=== PATIENT | female | born 2000 | race Caucasian/White ===

== ENCOUNTER 2018-07-10 20:58 | Emergency (ER) | payer MEDICAID ==
[2018-07-11 01:43] LABS: ABSOLUTE EOSINOPHILS # (AUTO) 0.1 10^3/uL (0.0-0.6); ABSOLUTE LYMPHOCYTES (AUTO) 2.2 10^3/uL (0.5-4.7); ABSOLUTE MONOCYTES (AUTO) 0.6 10^3/uL (0.1-1.4); ABSOLUTE NEUT (AUTO) 7.9 10^3/uL (1.7-8.2); BASOPHILS % (AUTO) 0.1 % (0-2); HEMATOCRIT 37.1 % (36.0-47.0); HEMOGLOBIN 12.8 g/dL (12.0-15.5); LYMPHOCYTES % (AUTO) 20.3 % (13-45); MEAN CORPUSCULAR HEMOGLOBIN 31.4 pg (27.0-33.4); MEAN CORPUSCULAR HGB CONC 34.6 g/dL (32.0-36.0); MEAN CORPUSCULAR VOLUME 91 fl (80-97); MONOCYTES % (AUTO) 5.2 % (3-13); PLATELET COUNT 222 10^3/uL (150-450); RED BLOOD COUNT 4.09 10^6/uL (3.72-5.28); SEGMENTED NEUTROPHILS % (AUTO) 73.4 % (42-78); TOTAL CELLS COUNTED % (AUTO) 100 %; WHITE BLOOD COUNT 10.7 10^3/uL (4.0-10.5)
[2018-07-11 01:53] LABS: ANION GAP 7 (5-19); BLOOD UREA NITROGEN 8 mg/dL (7-20); CALCIUM 9.3 mg/dL (8.4-10.2); CARBON DIOXIDE 26 mmol/L (22-30); CHLORIDE 106 mmol/L (98-107); GLUCOSE 76 mg/dL (75-110); POTASSIUM 3.7 mmol/L (3.6-5.0); SODIUM 139.4 mmol/L (137-145)
[2018-07-11 02:03] LABS: APPEARANCE,URINE SLIGHTLY-CLOUDY; BILIRUBIN,URINE NEGATIVE (NEGATIVE); COLOR,URINE AMBER; GLUCOSE, URINE NEGATIVE (NEGATIVE); KETONES,URINE 20 mg/dL (NEGATIVE); LEUKOCYTE ESTERASE,URINE MODERATE (NEGATIVE); NITRITE,URINE POSITIVE (NEGATIVE); PROTEIN,URINE NEGATIVE (NEGATIVE); URINE SPECIFIC GRAVITY 1.017
[2018-07-11] MEDS ORDERED: LIDOCAINE 1% INJ-PF (10 MG/ML) 30 ML SDV INFIL ONE (02:31)
[2018-07-11] MEDS ORDERED: CEFTRIAXONE INJ 1000 MG VIAL IM ONE (02:31)
--- NOTE | 2018-07-11 02:33 | ER Document Report ---
ED General - General Chief Complaint: Flank Pain Stated Complaint: URINARY COMPLAINTS Time Seen by Provider: 07/11/18 00:45 Notes: Patient is a 18-year-old female without chronic medical problems who presents with right flank pain and dysuria. States the symptoms been ongoing for the past 48 hours. She was seen as an outpatient basis in [place] yesterday, diagnosed as having a right-sided kidney infection, given a dose of IV antibiotics and discharged home. States that she was unable to fill her antibiotic prescription today secondary to insurance issues. She reports that she continues to have a stabbing, aching, constant pain to the right flank. Nothing improves or worsens that pain. No history of similar symptoms in the past. She has not had a recorded fever at home, does note some mild nausea and fatigue. Has not yet followed up with her primary doctor regarding today's concerns. Continues to feel active movement. No vaginal bleeding or discharge. TRAVEL OUTSIDE OF THE [place] IN LAST 30 DAYS: No - Related Data Allergies/Adverse Reactions: No Known Allergies Allergy (Unverified 07/10/18 21:02) Past Medical History - General Information source: Patient - Social History Smoking Status: Never Smoker Frequency of alcohol use: None Drug Abuse: None Lives with: Alone Family History: Reviewed & Not Pertinent Review of Systems - Review of Systems Notes: Constitutional: Negative for fever. HENT: Negative for sore throat. Eyes: Negative for visual changes. Cardiovascular: Negative for chest pain. Respiratory: Negative for shortness of breath. Gastrointestinal: Positive for right flank pain and nausea Genitourinary: Positive for dysuria. Musculoskeletal: Negative for back pain. Skin: Negative for rash. Neurological: Negative for headaches, weakness or numbness. 10 point ROS negative except as marked above and in HPI. Physical Exam - Vital signs Vitals: Temp Pulse Resp BP Pulse Ox 98.4 F 70 18 112/54 L 97 07/10/18 21:36 07/10/18 21:36 07/10/18 21:36 07/10/18 21:36 07/10/18 21:36 Interpretation: Normal Notes: PHYSICAL EXAMINATION: GENERAL: Well-appearing, well-nourished and in no acute distress. HEAD: Atraumatic, normocephalic. EYES: Pupils equal round and reactive to light, extraocular movements intact, sclera anicteric, conjunctiva are normal. ENT: nares patent, oropharynx clear without exudates. Moist mucous membranes. NECK: Normal range of motion, supple without lymphadenopathy LUNGS: Breath sounds clear to auscultation bilaterally and equal. No wheezes rales or rhonchi. HEART: Regular rate and rhythm without murmurs ABDOMEN: Soft, gravid uterus, nontender, normoactive bowel sounds. No guarding, no rebound. No masses appreciated. Mild right CVA tenderness. EXTREMITIES: Normal range of motion, no pitting or edema. No cyanosis. NEUROLOGICAL: No focal neurological deficits. Moves all extremities spontaneously and on command. PSYCH: Normal mood, normal affect. SKIN: Warm, Dry, normal turgor, no rashes or lesions noted. Course - Re-evaluation Re-evalutation: 07/11/18 02:31 Presentation is most consistent with acute pyelonephritis. Laboratories do demonstrate a large amount of white blood cells in the urine as well as bacteria. Patient apparently had an ultrasound of her kidneys yesterday that did show inflammation of her right kidney. CVA tenderness is present on exam. The remainder laboratories are relatively unremarkable without evidence of renal dysfunction. I do not suspect an acute appendicitis, biliary pathology, pancreatitis, intra-abdominal abscess, or tubo-ovarian abscess based on history and examination. Patient is 19 weeks , bedside ultrasound without any abnormalities, active movement and normal heart rate at 143. I did discuss this case with the [employer]ER on-call Dr. Steiner given that the patient is . He is agreeable to outpatient management. Patient has been given an additional dose of ceftriaxone IM here in the emergency department and will be discharged home on 7 day course of cephalexin. A urine culture has been sent. At this time will discharge with return precautions and follow-up recommendations. Verbal discharge instructions given a the bedside and opportunity for questions given. Medication warnings reviewed. Patient is in agreement with this plan and has verbalized understanding of return precautions and the need for primary care follow-up in the next 24-72 hours. - Vital Signs Vital signs: Temp Pulse Resp BP Pulse Ox 98.4 F 72 18 105/51 L 98 07/11/18 03:28 07/11/18 03:28 07/11/18 03:28 07/11/18 03:28 07/11/18 03:28 - Laboratory Result Diagrams: 07/11/18 01:30 07/11/18 01:30 Laboratory results interpreted by me: 07/11/18 07/11/18 07/11/18 01:30 01:30 01:30 WBC 10.7 H Creatinine 0.51 L Beta HCG, Quant Urine Ketones 20 H Urine Blood SMALL H Urine Nitrite POSITIVE H Urine Urobilinogen 4.0 H Ur Leukocyte Esterase MODERATE H Urine HCG, Qual POSITIVE H 07/11/18 01:30 WBC Creatinine Beta HCG, Quant 49212.00 H Urine Ketones Urine Blood Urine Nitrite Urine Urobilinogen Ur Leukocyte Esterase Urine HCG, Qual Discharge - Discharge Clinical Impression: Right flank pain Pyelonephritis affecting Qualifiers: Trimester: second trimester Qualified Code(s): O23.02 - Infections of kidney in , second trimester Condition: Stable Disposition: HOME, SELF-CARE Additional Instructions: You have been diagnosed with a condition called pyelonephritis which is an infection involving your kidneys and bladder. You have been given a dose of antibiotics here in the emergency department to help begin to treat this infection. Your also being sent home on antibiotics. Please start taking these later on today when you fill the prescription. Complete the course even if you feel better. Please return if you have persistent vomiting, pass out, have worsening pain, become unable to tolerate fluids, or have any other symptoms that are concerning to you. Please follow-up with your primary care physician in the next 24-48 hours. Prescriptions: Cephalexin Monohydrate [Keflex 500 mg Capsule] 500 mg PO Q6H 7 Days capsule
[2018-07-11 03:32] VITALS: BP 105/51
== END 2018-07-11 03:32 | disposition home or self-care (01) ==
LOC: ER 20:58
DX: O23.02 Infections of kidney in pregnancy, second trimester (principal); R10.9 Unspecified abdominal pain; R30.0 Dysuria; Z3A.19 19 weeks gestation of pregnancy
CPT/HCPCS: 99284; 96372; 36415; 87086; 84702; 85025; 81025; 80048; 81001; J3490; J0696

== ENCOUNTER 2018-07-11 17:37 | Inpatient (IN) | payer MEDICAID ==
[2018-07-11] MEDS ORDERED: NORMAL SALINE 1000 ML 1,000 ML IV ONE ×2 (18:54→21:24)
[2018-07-11] MEDS ORDERED: FENTANYL CITRATE INJ/PF 100 MCG/2 ML AMPUL IV ONE (18:57)
--- NOTE | 2018-07-11 19:00 | ER Document Report ---
ED Medical Screen (RME) - General Chief Complaint: Flank Pain Stated Complaint: FLANK PAIN Time Seen by Provider: 07/11/18 18:54 Notes: Patient is 19 weeks and has been diagnosed with a kidney infection. She has been having symptoms for a total of a couple of days. She was originally seen at [facility] 2 days ago and diagnosed with the infection. She says that she they did an ultrasound at that time and it did not show any evidence of kidney stones. Patient was unable to fill her prescription that was given. She came here last night and was given a dose of Rocephin IV and prescription for Keflex. She says that she does not have anything but Tylenol to take for pain. She is nauseated but not vomiting. Not running any fever. TRAVEL OUTSIDE OF THE [place] IN LAST 30 DAYS: No - Related Data Allergies/Adverse Reactions: No Known Allergies Allergy (Unverified 07/10/18 21:02) Past Medical History - Social History Frequency of alcohol use: None Drug Abuse: None Renal/ Medical History: Denies: Hx Peritoneal Dialysis Past Surgical History: Reports: Hx Appendectomy Physical Exam - Vital signs Vitals: Temp Pulse Resp BP Pulse Ox 99 F 95 18 123/62 96 07/11/18 17:45 07/11/18 17:45 07/11/18 17:45 07/11/18 17:45 07/11/18 17:45 Course - Vital Signs Vital signs: Temp Pulse Resp BP Pulse Ox 99 F 95 18 123/62 96 07/11/18 17:45 07/11/18 17:45 07/11/18 17:45 07/11/18 17:45 07/11/18 17:45
[2018-07-11 19:30] LABS: ABSOLUTE EOSINOPHILS # (AUTO) 0.1 10^3/uL (0.0-0.6); ABSOLUTE LYMPHOCYTES (AUTO) 1.4 10^3/uL (0.5-4.7); ABSOLUTE MONOCYTES (AUTO) 0.4 10^3/uL (0.1-1.4); ABSOLUTE NEUT (AUTO) 7.1 10^3/uL (1.7-8.2); BASOPHILS % (AUTO) 0.3 % (0-2); EOSINOPHILS % (AUTO) 0.6 % (0-6); HEMATOCRIT 36.3 % (36.0-47.0); HEMOGLOBIN 12.5 g/dL (12.0-15.5); LYMPHOCYTES % (AUTO) 15.2 % (13-45); MEAN CORPUSCULAR HEMOGLOBIN 31.2 pg (27.0-33.4); MEAN CORPUSCULAR HGB CONC 34.5 g/dL (32.0-36.0); MEAN CORPUSCULAR VOLUME 91 fl (80-97); MONOCYTES % (AUTO) 4.8 % (3-13); PLATELET COUNT 229 10^3/uL (150-450); RED BLOOD COUNT 4.01 10^6/uL (3.72-5.28); RED CELL DISTRIBUTION WIDTH 12.6 % (11.5-14.0); SEGMENTED NEUTROPHILS % (AUTO) 79.1 % (42-78); TOTAL CELLS COUNTED % (AUTO) 100 %; WHITE BLOOD COUNT 8.9 10^3/uL (4.0-10.5)
--- NOTE | 2018-07-11 19:35 | ER Document Report ---
ED General - General Chief Complaint: Flank Pain Stated Complaint: FLANK PAIN Time Seen by Provider: 07/11/18 18:54 Notes: Patient is a 18-year-old female that presents to the emergency department for chief complaint of right flank pain. Patient states that she initially went to an [facility] hospital 2 days ago, was seen in the emergency department diagnosed with a UTI, she is currently 19 weeks gravid, , and was started on antibiotics, she came to the emergency department yesterday she is still having some right flank pain associated with this, but it was controllable, she was discharged home, to take Tylenol and Keflex, however the pain persisted through today so she came back to the emergency department for her third visit, describing severe right flank pain, she describes as a 10 out of 10, constant aching sensation, and she cannot get comfortable. She denies having any blood in the urine, but does admit to having dysuria associated with this and urinary frequency. Denies prior history of UTIs, or kidney stones. Denies noting any fevers, but has felt chilled associated with this, and has had nausea but no vomiting. Past Medical History: Denies chronic medical conditions Past Surgical History: Denies surgical history Social History: Denies current tobacco, alcohol or drug use. Family History: Reviewed and noncontributory for presenting illness Allergies: Reviewed, see documented allergy list. REVIEW OF SYSTEMS: Other than noted above, the 12 point review of systems was reviewed with the patient and were negative, all pertinent findings are included in the HPI. PHYSICAL EXAMINATION: Vital signs reviewed, nursing noted reviewed. GENERAL: Patient appears uncomfortable on exam, but nontoxic appearing HEAD: Atraumatic, normocephalic. EYES: Eyes appear normal, extraocular movements intact, sclera anicteric, conjunctiva are normal. ENT: nares patent, oropharynx clear without exudates. Moist mucous membranes. NECK: Normal range of motion, supple without lymphadenopathy LUNGS: Breath sounds clear to auscultation bilaterally and equal. No wheezes rales or rhonchi. HEART: Regular rate and rhythm without murmurs ABDOMEN: Soft, right CVA tenderness to palpation, no anterior abdominal tenderness noted, normoactive bowel sounds. No rebound, guarding, or rigidity. No masses appreciated. EXTREMITIES: Nontender, good range of motion, no pitting or edema. NEUROLOGICAL: No focal neurological deficits. Moves all extremities spontaneously Motor and sensory grossly intact on exam. PSYCH: Normal mood, normal affect. SKIN: Warm, Dry, normal turgor, no rashes or lesions noted on exposed skin TRAVEL OUTSIDE OF THE [place] IN LAST 30 DAYS: No - Related Data Allergies/Adverse Reactions: No Known Allergies Allergy (Unverified 07/10/18 21:02) Past Medical History - Social History Smoking Status: Never Smoker Frequency of alcohol use: None Drug Abuse: None Family History: Reviewed & Not Pertinent Patient has suicidal ideation: No Patient has homicidal ideation: No Renal/ Medical History: Denies: Hx Peritoneal Dialysis Past Surgical History: Reports: Hx Appendectomy Physical Exam - Vital signs Vitals: Temp Pulse Resp BP Pulse Ox 99 F 95 18 123/62 96 07/11/18 17:45 07/11/18 17:45 07/11/18 17:45 07/11/18 17:45 07/11/18 17:45 Course - Re-evaluation Re-evalutation: Patient seen and examined vital signs reviewed. Laboratory data and imaging were ordered as appropriate for the patient's presenting symptoms and complaint, with consideration of any critical or life threatening conditions that may be associated with their obtained history and exam as noted above. Patient was treated with IV Rocephin, initially given IV fentanyl, via triage provider Results were reviewed when available and demonstrated resolving leukocytosis, urinalysis was nitrite positive as it was before, leuk esterase seem to be decreasing in amount, bedside ultrasound was performed which appeared to have mild right hydronephrosis, compared to the left The patient was re-evaluated and was still rather uncomfortable, I did dose her with a dose of IV morphine, 4 mg, as well as IV Phenergan for nausea, I discussed this case with Dr. Dickerson with [employer], in regards to whether a CT would be warranted to evaluate for possible renal stone, or rather observe, and treat for pyelonephritis, she agreed to admit the patient for IV fluid resuscitation, and monitoring, patient was agreeable to this plan of care. Evaluation was most consistent with acute pyelonephritis, right flank pain Results were discussed with the patient at this point after careful consideration I feel that that patient should be admitted to the hospital. This was discussed with the patient that it is in the best interest for their care to be admitted for further evaluation and management. Patient agreed with this plan of care. A call was placed to the admitted physician, Dr. Dickerson who graciously accepted the patient onto their service. *Note is created using voice recognition software and may contain spelling, syntax or grammatical errors. Laboratory 07/11/18 07/11/18 07/11/18 19:17 19:17 19:51 WBC 8.9 RBC 4.01 Hgb 12.5 Hct 36.3 MCV 91 MCH 31.2 MCHC 34.5 RDW 12.6 Plt Count 229 Seg Neutrophils % 79.1 H Lymphocytes % 15.2 Monocytes % 4.8 Eosinophils % 0.6 Basophils % 0.3 Absolute Neutrophils 7.1 Absolute Lymphocytes 1.4 Absolute Monocytes 0.4 Absolute Eosinophils 0.1 Absolute Basophils 0.0 Sodium 139.1 Potassium 4.7 D Chloride 105 Carbon Dioxide 26 Anion Gap 8 BUN 10 Creatinine 0.68 Est GFR ( Amer) > 60 Est GFR (Non-Af Amer) > 60 Glucose 87 Calcium 9.4 Total Bilirubin 0.5 Direct Bilirubin 0.2 Neonat Total Bilirubin Not Reportable Neonat Direct Bilirubin Not Reportable Neonat Indirect Bili Not Reportable AST 14 ALT 20 Alkaline Phosphatase 44 Total Protein 6.3 Albumin 4.0 Urine Color DARK YELLOW Urine Appearance TURBID Urine pH 7.0 Ur Specific [place] 1.023 Urine Protein NEGATIVE Urine Glucose (UA) NEGATIVE Urine Ketones NEGATIVE Urine Blood NEGATIVE Urine Nitrite POSITIVE H Urine Bilirubin NEGATIVE Urine Urobilinogen 2.0 H Ur Leukocyte Esterase SMALL H Urine WBC (Auto) 18 Urine RBC (Auto) 6 Squamous Epi Cells Auto 11 Amorphous Sediment Auto 1+ Urine Mucus (Auto) RARE Urine Ascorbic Acid NEGATIVE - Vital Signs Vital signs: Temp Pulse Resp BP Pulse Ox 99 F 95 18 106/51 L 99 07/11/18 17:45 07/11/18 17:45 07/11/18 17:45 07/11/18 19:35 07/11/18 20:01 - Laboratory Result Diagrams: 07/11/18 19:17 07/11/18 19:17 Laboratory results interpreted by me: 07/11/18 07/11/18 19:17 19:51 Seg Neutrophils % 79.1 H Urine Nitrite POSITIVE H Urine Urobilinogen 2.0 H Ur Leukocyte Esterase SMALL H Procedures - Ultrasound/Bedside Ultrasound/Bedside Notes: 07/11/18 21:35 Exam: Limited bilateral renal ultrasound. Indication: Right flank pain. Impression: Bilateral kidneys were visualized using abdominal probe, in multiple planes, there appeared to be mild hydronephrosis on the right when compared to the left, no visible stone, kidneys appeared normal in size and contour. No other acute findings. Discharge - Discharge Clinical Impression: Right flank pain Pyelonephritis affecting Qualifiers: Trimester: second trimester Qualified Code(s): O23.02 - Infections of kidney in , second trimester Condition: Stable Disposition: ADMITTED INPATIENT Admitting Provider: [facility] - Dr. Dickerson Unit Admitted: Labor and Delivery
[2018-07-11 19:51] LABS: ALANINE AMINOTRANSFERASE 20 U/L (9-52); ALKALINE PHOSPHATASE 44 U/L (38-126); ANION GAP 8 (5-19); ASPARTATE AMINO TRANSFERASE 14 U/L (14-36); BILIRUBIN,DIRECT 0.2 mg/dL (0.0-0.4); BILIRUBIN,TOTAL 0.5 mg/dL (0.2-1.3); BLOOD UREA NITROGEN 10 mg/dL (7-20); CALCIUM 9.4 mg/dL (8.4-10.2); CARBON DIOXIDE 26 mmol/L (22-30); CHLORIDE 105 mmol/L (98-107); GLUCOSE 87 mg/dL (75-110); SODIUM 139.1 mmol/L (137-145); TOTAL PROTEIN 6.3 g/dL (6.3-8.2)
[2018-07-11 19:56] LABS: POTASSIUM 4.7 mmol/L (3.6-5.0)
[2018-07-11 20:27] LABS: AMORPHOUS SEDIMENT,URINE 1+ /HPF; APPEARANCE,URINE TURBID; BILIRUBIN,URINE NEGATIVE (NEGATIVE); COLOR,URINE DARK YELLOW; GLUCOSE, URINE NEGATIVE (NEGATIVE); KETONES,URINE NEGATIVE (NEGATIVE); LEUKOCYTE ESTERASE,URINE SMALL (NEGATIVE); NITRITE,URINE POSITIVE (NEGATIVE); PROTEIN,URINE NEGATIVE (NEGATIVE); URINE SPECIFIC GRAVITY 1.023
[2018-07-11] MEDS ORDERED: CEFTRIAXONE INJ 1000 MG VIAL IV ONE (20:29)
[2018-07-11] MEDS ORDERED: PHENAZOPYRIDINE HCL 200 MG TABLET PO ONE (20:30)
[2018-07-11] MEDS ORDERED: PROMETHAZINE HCL INJ 25 MG/1 ML VIAL IV ONE (21:13)
[2018-07-11] MEDS ORDERED: MORPHINE SULFATE 10 MG/ML INJ IV ONE (21:13)
[2018-07-11] MEDS ORDERED: IBUPROFEN 800 MG TABLET PO PRN (23:25)
[2018-07-11] MEDS: OXYCODONE-ACETAMINOPHEN 5-325 MG TABLET PO PRN (23:58)
[2018-07-12] MEDS: RINGERS SOLUTION,LACTATED 1,000 ML IV PRN ×3 (01:02→20:03)
[2018-07-12] MEDS ORDERED: PROMETHAZINE HCL INJ 25 MG/1 ML VIAL IV ONE (03:30)
[2018-07-12] MEDS ORDERED: MORPHINE SULFATE 10 MG/ML INJ IV ONE (04:00)
[2018-07-12] MEDS: OXYCODONE-ACETAMINOPHEN 5-325 MG TABLET PO PRN ×4 (04:52→20:02)
--- NOTE | 2018-07-12 07:28 | PDOC H&P ---
History of Present Illness Admission Date/PCP: 07/11/18 21:44 Patient complains of: flank pain and dysuria History of Present Illness: BETZAIDA FORDE is a 18 year old female G1 @ 19 wks EGA with c/o persistent flank pain worsening over the last 2 days. Came to ER on Friday and returned with worsening pain. +Nausea/vomiting Past Medical History LMP: 02/24/18 Gynecological Infection: Yes - 3 years ago Psychiatric Medical History: Denies: Depression Past Surgical History Past Surgical History: Reports: Appendectomy Social History Smoking Status: Never Smoker Frequency of Alcohol Use: None Hx Recreational Drug Use: No Drugs: None Hx Prescription Drug Abuse: No Family History Family History: Reviewed & Not Pertinent Parental Family History Reviewed: Yes - Mother with h/o renal stones Children Family History Reviewed: Yes Sibling(s) Family History Reviewed.: Yes Medication/Allergy Home Medications: Cephalexin Monohydrate [Keflex 500 mg Capsule] 500 mg PO Q6H 7 Days capsule 07/11/18 Allergies/Adverse Reactions: No Known Allergies Allergy (Unverified 07/10/18 21:02) Physical Exam - Physical Exam Vital Signs: Temp Pulse Resp BP Pulse Ox 98.6 F 102 H 18 105/56 L 98 07/12/18 03:36 07/12/18 03:36 07/12/18 03:36 07/12/18 03:36 07/12/18 03:36 Intake & Output 07/11/18 07/12/18 07/13/18 06:59 06:59 06:59 Intake Total 1000 Output Total 25 Balance 975 Weight 57.9 kg General appearance: PRESENT: no acute distress, cooperative - + CVA tenderness on right Result Laboratory Results: 07/11/18 19:17 07/11/18 19:17 07/11/18 07/11/18 07/11/18 19:17 19:17 19:51 WBC 8.9 RBC 4.01 Hgb 12.5 Hct 36.3 MCV 91 MCH 31.2 MCHC 34.5 RDW 12.6 Plt Count 229 Seg Neutrophils % 79.1 H Lymphocytes % 15.2 Monocytes % 4.8 Eosinophils % 0.6 Basophils % 0.3 Absolute Neutrophils 7.1 Absolute Lymphocytes 1.4 Absolute Monocytes 0.4 Absolute Eosinophils 0.1 Absolute Basophils 0.0 Sodium 139.1 Potassium 4.7 D Chloride 105 Carbon Dioxide 26 Anion Gap 8 BUN 10 Creatinine 0.68 Est GFR ( Amer) > 60 Est GFR (Non-Af Amer) > 60 Glucose 87 Calcium 9.4 Total Bilirubin 0.5 AST 14 ALT 20 Alkaline Phosphatase 44 Total Protein 6.3 Albumin 4.0 Urine Color DARK YELLOW Urine Appearance TURBID Urine pH 7.0 Ur Specific [place] 1.023 Urine Protein NEGATIVE Urine Glucose (UA) NEGATIVE Urine Ketones NEGATIVE Urine Blood NEGATIVE Urine Nitrite POSITIVE H Ur Leukocyte Esterase SMALL H Urine WBC (Auto) 18 Urine RBC (Auto) 6 Assessment & Plan - Diagnosis (1) Pyelonephritis affecting Qualifiers: Trimester: second trimester Qualified Code(s): O23.02 - Infections of kidney in , second trimester Is this a current diagnosis for this admission?: Yes (2) Right flank pain Is this a current diagnosis for this admission?: Yes - Time Time Spent: 30 to 50 Minutes Critical Time spent with patient: Less than 15 minutes Anticipated discharge: Home Within: within 48 hours - Inpatient Certification Based on my medical assessment, after consideration of the patient's comorbidities, presenting symptoms, or acuity I expect that the services needed warrant INPATIENT care.: Yes I certify that my determination is in accordance with my understanding of Medicare's requirements for reasonable and necessary INPATIENT services [42 CFR 412.3e].: Yes Medical Necessity: Need Close Monitoring Due to Risk of Patient Decompensation, Need For IV Fluids, Need for Pain Control, Need for IV Antibiotics - Plan Summary Plan Summary: 48 hours of antibiotics. aggressive hydration to flush renal stone if present. strain urine for stone
[2018-07-12] MEDS: PROMETHAZINE HCL INJ 25 MG/1 ML VIAL IV PRN ×3 (09:29→18:40)
[2018-07-12] MEDS ORDERED: ACETAMINOPHEN 325 MG TABLET PO PRN (10:09)
--- NOTE | 2018-07-12 10:09 | PDOC PROGRESS REPORT ---
Subjective Progress Note for:: 07/12/18 Subjective:: pt states she has right flank pain Reason For Visit: PYELONEPHRITIS AFFECTING Physical Exam - Physical Exam Vital Signs: Temp Pulse Resp BP Pulse Ox 98.3 F 82 15 103/56 L 98 07/12/18 09:07 07/12/18 09:07 07/12/18 09:07 07/12/18 09:07 07/12/18 09:07 Intake & Output 07/11/18 07/12/18 07/13/18 06:59 06:59 06:59 Intake Total 1000 1000 Output Total 25 Balance 975 1000 Weight 57.9 kg General appearance: PRESENT: no acute distress Additional comments: mild right CVA tenderness abd soft non tender Result Laboratory Results: 07/11/18 19:17 07/11/18 19:17 07/11/18 07/11/18 07/11/18 19:17 19:17 19:51 WBC 8.9 RBC 4.01 Hgb 12.5 Hct 36.3 MCV 91 MCH 31.2 MCHC 34.5 RDW 12.6 Plt Count 229 Seg Neutrophils % 79.1 H Lymphocytes % 15.2 Monocytes % 4.8 Eosinophils % 0.6 Basophils % 0.3 Absolute Neutrophils 7.1 Absolute Lymphocytes 1.4 Absolute Monocytes 0.4 Absolute Eosinophils 0.1 Absolute Basophils 0.0 Sodium 139.1 Potassium 4.7 D Chloride 105 Carbon Dioxide 26 Anion Gap 8 BUN 10 Creatinine 0.68 Est GFR ( Amer) > 60 Est GFR (Non-Af Amer) > 60 Glucose 87 Calcium 9.4 Total Bilirubin 0.5 AST 14 ALT 20 Alkaline Phosphatase 44 Total Protein 6.3 Albumin 4.0 Urine Color DARK YELLOW Urine Appearance TURBID Urine pH 7.0 Ur Specific [place] 1.023 Urine Protein NEGATIVE Urine Glucose (UA) NEGATIVE Urine Ketones NEGATIVE Urine Blood NEGATIVE Urine Nitrite POSITIVE H Ur Leukocyte Esterase SMALL H Urine WBC (Auto) 18 Urine RBC (Auto) 6 Assessment & Plan - Plan Summary Plan Summary: continue with IV hydration, antibiotic
[2018-07-12] MEDS: CEFTRIAXONE 1 GM/D5W RTU 1 GM/50 ML RTUPB IV SCH ×2 (10:47→21:47)
[2018-07-12] MEDS: MORPHINE SULFATE 10 MG/ML INJ IV ONE (19:50)
[2018-07-13] MEDS: PROMETHAZINE HCL INJ 25 MG/1 ML VIAL IV PRN ×4 (00:10→23:39)
[2018-07-13] MEDS: OXYCODONE-ACETAMINOPHEN 5-325 MG TABLET PO PRN ×2 (00:42→06:00)
[2018-07-13] MEDS ORDERED: PROMETHAZINE HCL INJ 25 MG/1 ML VIAL ONE (05:54)
[2018-07-13] MEDS: RINGERS SOLUTION,LACTATED 1,000 ML IV PRN ×3 (06:04→21:15)
[2018-07-13] MEDS ORDERED: MORPHINE SULFATE 10 MG/ML INJ ONE (07:57)
[2018-07-13] MEDS: MORPHINE SULFATE 10 MG/ML INJ IV ONE (08:02)
--- NOTE | 2018-07-13 08:02 | PDOC PROGRESS REPORT ---
Subjective Progress Note for:: 07/13/18 Subjective:: Patient states that her pain is currently a 5 out of 5. Complaining of pain wrapping around her back and into the front, on both sides. Also complaining of nausea. No vomiting. Patient eating small amounts. Patient ambulating without difficulty. Patient does complain of discomfort when voiding. Reason For Visit: PYELONEPHRITIS DURING Physical Exam - Physical Exam Vital Signs: Temp Pulse Resp BP Pulse Ox 98.7 F 74 16 96/45 L 97 07/13/18 07:50 07/13/18 07:50 07/13/18 07:50 07/13/18 07:50 07/13/18 07:50 Intake & Output 07/12/18 07/13/18 07/14/18 06:59 06:59 06:59 Intake Total 1000 3500 Output Total 25 625 Balance 975 2875 Weight 57.9 kg 58.7 kg General appearance: PRESENT: no acute distress Respiratory exam: PRESENT: clear to auscultation ángel Cardiovascular exam: PRESENT: RRR GI/Abdominal exam: PRESENT: normal bowel sounds, soft Extremities exam: ABSENT: calf tenderness, clubbing, full ROM, joint swelling, pedal edema, tenderness, +1 edema, +2 edema, other Musculoskeletal exam: PRESENT: tenderness - Bilateral flank pain Result Laboratory Results: 07/11/18 19:17 07/11/18 19:17 Assessment & Plan - Diagnosis (1) Bilateral flank pain Is this a current diagnosis for this admission?: Yes (2) Pyelonephritis affecting Qualifiers: Trimester: second trimester Qualified Code(s): O23.02 - Infections of kidney in , second trimester Is this a current diagnosis for this admission?: Yes (3) Right flank pain Is this a current diagnosis for this admission?: Yes - Time Time Spent with patient: 15-24 minutes - Plan Summary Plan Summary: 1. Repeat renal ultrasound 2. Pain control
[2018-07-13] MEDS: CEFTRIAXONE 1 GM/D5W RTU 1 GM/50 ML RTUPB IV SCH ×2 (10:22→21:15)
--- NOTE | 2018-07-13 11:52 | RADIOLOGY REPORT (SQ) ---
EXAM DESCRIPTION: U/S RETROPERITON (RENAL/AORTA) COMPLETED DATE/TIME: 07/13/2018 11:42 am REASON FOR STUDY: possible renal lithiasis COMPARISON: None. TECHNIQUE: Dynamic and static grayscale images acquired of the kidneys and bladder and recorded on P ACS. Additional selected color Doppler and spectral images recorded. LIMITATIONS: None. FINDINGS: RIGHT KIDNEY: The right kidney measures 11.0 cm in length, normal size. Normal echogenici ty. No solid or suspicious masses. The renal pelvis is dilated. LEFT KIDNEY: The left kidney measures 11.0 cm in length, normal size. Normal echogenicity. No solid or suspicious masses. No hydronephrosis. No calcifications. BLADDER: No masses. Bilateral ureteral jets are not visualized. OTHER FINDINGS: No other significant finding. IMPRESSION: 1. No hydronephrosis on the left. 2. The right renal pelvis is dilated. Etiologies not visualized on this examination. TECHNICAL DOCUMENTATION: JOB ID: [id number] [employer]- All Rights Reserved Reading location - IP/workstation name: [email or web address]
[2018-07-13] MEDS: HYDROMORPHONE HCL INJ/PF 2 MG/ML AMPULE IV PRN ×3 (12:59→21:51)
[2018-07-13] MEDS ORDERED: FLUCONAZOLE 100 MG TABLET PO ONE (19:00)
[2018-07-14] MEDS: HYDROMORPHONE HCL INJ/PF 2 MG/ML AMPULE IV PRN ×2 (02:22→07:24)
[2018-07-14] MEDS: RINGERS SOLUTION,LACTATED 1,000 ML IV PRN (04:45)
[2018-07-14] MEDS: PROMETHAZINE HCL INJ 25 MG/1 ML VIAL IV PRN (06:15)
--- NOTE | 2018-07-14 10:11 | PDOC DISCHARGE SUMMARY ---
General - Admit/Disc Date/PCP Admission Date/Primary Care Provider: 07/11/18 21:44 Discharge Date: 07/14/18 - Discharge Diagnosis (1) Right flank pain Is this a current diagnosis for this admission?: Yes (2) UTI (urinary tract infection) Is this a current diagnosis for this admission?: Yes - Additional Information Discharge Diet: As Tolerated Discharge Activity: Activity As Tolerated Home Medications: Cephalexin Monohydrate [Keflex 500 mg Capsule] 500 mg PO Q6H 7 Days capsule 07/11/18 History of Present Illness Patient complains of: pt c/o right flank pain and was seen in ER twice. Inconclusive as th shannon rodriguez stone id present. Pt did not take her home meds and was admitted for IV antibiotics History of Present Illness: BETZAIDA FORDE is a 18 year old female Hospital Course Hospital Course: WBC 8.9 and she is tolerating a regular diet and ambulating without difficulty, Radiology recommends repeat renal US in 2-3 days pt has perscription at home for keflex and [facility] [place] [facility] Physical Exam - Physical Exam Vital Signs: Temp Pulse Resp BP Pulse Ox 98.9 F 89 18 116/61 99 07/14/18 07:27 07/14/18 07:27 07/14/18 07:27 07/14/18 07:27 07/14/18 07:27 Intake & Output 07/13/18 07/14/18 07/15/18 06:59 06:59 06:59 Intake Total 3500 4168 Output Total 625 604 Balance 2875 3564 Weight 58.7 kg 65.8 kg General appearance: PRESENT: no acute distress GI/Abdominal exam: PRESENT: soft Result Laboratory Results: 07/11/18 19:17 07/11/18 19:17 07/11/18 19:51 Clean Catch Midstream Urine Culture - Final C.albicans/C.dubliniensis Impressions: Renal Ultrasound 07/13/18 00:00 IMPRESSION: 1. No hydronephrosis on the left. 2. The right renal pelvis is dilated. Etiologies not visualized on this examination. Plan Discharge Plan: d/c f/u prm or her regular OB Time Spent: Less than 30 Minutes
[2018-07-14 11:27] VITALS: BP 115/67
[2018-07-14] MEDS ORDERED: CEPHALEXIN 500 MG CAPSULE PO SCH (12:00)
== END 2018-07-14 16:20 | disposition home or self-care (01) | DRG 833 ==
LOC: ER 17:37 → EH 21:44 → 2S 07-12 00:20
PROVIDERS: ADMIT Student in an Organized Health Care Education/Training Program; ATTEND Student in an Organized Health Care Education/Training Program
DX: O23.02 Infections of kidney in pregnancy, second trimester (principal); Z3A.19 19 weeks gestation of pregnancy
CPT/HCPCS: 36415; 76770; 80053; 81001; 85025; 87086; 96361; 96365; 96375; 99284; J0696; J1170; J2270; J2550; J3010; J3490; J7030; J7120

== ENCOUNTER 2018-08-29 23:56 | Outpatient (CLI) | payer MEDICAID ==
[2018-08-30 01:14] LABS: APPEARANCE,URINE CLEAR; BILIRUBIN,URINE NEGATIVE (NEGATIVE); COLOR,URINE STRAW; GLUCOSE, URINE NEGATIVE (NEGATIVE); KETONES,URINE NEGATIVE (NEGATIVE); LEUKOCYTE ESTERASE,URINE SMALL (NEGATIVE); NITRITE,URINE NEGATIVE (NEGATIVE); PROTEIN,URINE NEGATIVE (NEGATIVE); URINE SPECIFIC GRAVITY 1.006; UROBILINOGEN,URINE NEGATIVE mg/dL (<2.0)
[2018-08-30 01:30] LABS: URINE AMPHETAMINES SCREEN NEGATIVE; URINE BARBITURATES SCREEN NEGATIVE; URINE BENZODIAZEPINES SCREEN NEGATIVE; URINE COCAINE SCREEN NEGATIVE; URINE MARIJUANA (THC) SCREEN NEGATIVE; URINE METHADONE SCREEN NEGATIVE; URINE PHENCYCLIDINE SCREEN NEGATIVE
--- NOTE | 2018-08-30 05:09 | RADIOLOGY REPORT (SQ) ---
EXAM DESCRIPTION: US LIMITED COMPLETED DATE/TME: 08/30/2018 04:31 CLINICAL HISTORY: 18 years, Female, CERVICAL LENGTH PRE TERM CONTRACTIONS COMPARISON: None. TECHNIQUE: Limited second/third trimester ultrasound LIMITATIONS: None. FINDINGS: Single, live intrauterine gestation in the cephalic presentation. Amniotic fluid index obtained at 12.1 cm. Heart tones obtained at 133 bpm. The placenta is posterior in location without evidence for previa. Cervical length is 3.3 cm. Current gestational age 26 weeks 5 days.. IMPRESSION: Single, live intrauterine gestation in the cephalic presentation. Nonemergent follow-up recommended copyright 2010 [employer]- All Rights Reserved
[2018-08-30] MEDS ORDERED: CEFTRIAXONE INJ 1000 MG VIAL ONE (05:24)
[2018-08-30] MEDS ORDERED: LIDOCAINE 1% INJ-PF (10 MG/ML) 30 ML SDV ONE (05:24)
[2018-08-30] MEDS ORDERED: CEFTRIAXONE INJ 1000 MG VIAL IM ONE (05:30)
[2018-08-30] MEDS ORDERED: LIDOCAINE 1% INJ-PF (10 MG/ML) 30 ML SDV INJ ONE (05:30)
--- NOTE | 2018-08-30 05:55 | L&D Progress Notes ---
PROGRESS NOTES Datetime Report Generated by CPN: 08/30/2018 05:55 PROGRESS NOTE Impression Other: low back pain, left flank pain Procedures: Ultrasound Plan: Discharge Vital Signs : Reviewed; Within Normal Limits Comment: 18yo @ 26+5wks seen in triage w/complaint of low back pain and 'kidney pain'. Pt denies dysuria, hematuria, recently had intercourse. 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 receives her PNC in [place]. Denies reg ctx, loss of fluid or vaginal bleeding. UA: +leuk esterase/ small blood TVUS: c/l 3.4cm A/P: CL appropriate, uretine irritabiltiy noted, given 1L NS. Plan for IM rocephin and d/c home. Pt given strict labor precautions. Has a f/u appt September. All questions answered. LAST VAGINAL EXAM-NURSING Contractions: uterine irritability Contractions: uterine irritability Contractions: uterine irritability Contractions: uterine irritability Contractions: uterine irritability MEMBRANES Pooling: Negative FETUS A FHR - Baseline: 120s Monitoring: External US Accelerations: 10X10 Decelerations: None : 26+5 SIGNATURE SIGNATURE: [id number] Signature: with User ID: [email or web address]
== END 2018-08-30 05:59 | disposition home or self-care (01) ==
LOC: LC 08-30 00:02
PROVIDERS: ATTEND Obstetrics & Gynecology
PROC: 4A1HXCZ Monitoring of Products of Conception, Cardiac Rate, External Approach (ICD-10-PCS; principal; 2018-08-30)
DX: O99.89 Other specified diseases and conditions complicating pregnancy, childbirth and the puerperium (principal); N23 Unspecified renal colic; Z3A.26 26 weeks gestation of pregnancy
CPT/HCPCS: 59899; 81001; 80307; 76815; J3490; J0696

== ENCOUNTER 2019-05-15 03:20 | Emergency (ER) | payer SELFPAY ==
[2019-05-15] MEDS ORDERED: FAMOTIDINE 20 MG TABLET PO ONE (03:39)
[2019-05-15] MEDS ORDERED: IBUPROFEN 600 MG TABLET PO ONE (03:39)
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
[2019-05-15 05:04] VITALS: BP 111/58
== END 2019-05-15 05:03 | disposition home or self-care (01) ==
LOC: ER 03:20
DX: S69.91XA Unspecified injury of right wrist, hand and finger(s), initial encounter (principal); W22.09XA Striking against other stationary object, initial encounter
CPT/HCPCS: 99283; 73130; L3908

== ENCOUNTER 2019-06-22 03:08 | Emergency (ER) | payer SELFPAY ==
[2019-06-22] MEDS ORDERED: ACETAMINOPHEN 325 MG TABLET PO ONE (03:21)
[2019-06-22 06:57] VITALS: BP 111/76
[2019-06-22] MEDS ORDERED: DOXYCYCLINE HYCLATE 100 MG TABLET PO ONE (07:23)
--- NOTE | 2019-06-22 07:23 | ER Document Report ---
HPI - HPI Patient complains to provider of: acne swelling left upper lip Time Seen by Provider: 06/22/19 06:53 Onset: This evening Onset/Duration: Gradual Quality of pain: Throbbing Severity: Moderate Pain Level: 4 Context: 19-year-old female presented to ED for complaint of pain to the right upper lip after she squeezed a pimple when she got up for work. She states the swelling has been for about 5 hours now. 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 Associated Symptoms: Other - Swelling to right upper lip after squeezing a pimple Exacerbated by: Denies Relieved by: Denies Similar symptoms previously: No - CONSTITUTIONAL Constitutional: DENIES: Fever, Chills - EENT EENT: DENIES: Sore Throat, Ear Pain, Nasal Drainage-Clear, Nasal Drainage- Purulent, Congestion, Eye problems Notes: Swelling to right upper lip after she is squeezed the pimple no signs of an abscess or any viral illness. - CARDIOVASCULAR Cardiovascular: DENIES: Chest pain - RESPIRATORY Respiratory: DENIES: Trouble Breathing, Coughing - GASTROINTESTINAL Gastrointestinal: DENIES: Abdominal Pain, Nausea, Patient vomiting, Diarrhea, Constipation, Black / Bloody Stools - URINARY Urinary: DENIES: Dysuria, Urgency, Frequency - REPRODUCTIVE Reproductive: DENIES: :, Postmenopausal, Abnormal bleeding / discharge - MUSCULOSKELETAL Musculoskeletal: DENIES: Extremity pain, Back Pain, Neck Pain, Swelling - DERM Skin Color: Normal, Other - Swelling to right upper lip after she squeezed the pimple pimple is stated just above the right upper lip. No open area except for where she squeezed the pimple. Skin Problems: None Past Medical History - General Information source: Patient - Social History Smoking Status: Never Smoker Cigarette use (# per day): No Chew tobacco use (# tins/day): No Smoking Education Provided: No Frequency of alcohol use: Social Drug Abuse: None Occupation: [employer] Lives with: Family Family History: Reviewed & Not Pertinent Patient has suicidal ideation: No Patient has homicidal ideation: No - Past Medical History Cardiac Medical History: Reports: None Pulmonary Medical History: Reports: None EENT Medical History: Reports: None Neurological Medical History: Reports: None Endocrine Medical History: Reports: None Renal/ Medical History: Reports: Hx Ovarian Cysts, Hx Pelvic Inflammatory Disease - Chlamydia Malignancy Medical History: Reports: None GI Medical History: Reports: None Musculoskeletal Medical History: Reports Hx Musculoskeletal Trauma Skin Medical History: Reports None Psychiatric Medical History: Reports: Hx Depression - depression Traumatic Medical History: Reports: Hx Fractures - Fractured wrist Infectious Medical History: Reports: None Past Surgical History: Reports: Hx Appendectomy - Immunizations Immunizations up to date: Yes Hx Diphtheria, Pertussis, Tetanus Vaccination: Yes Vertical Provider Document - CONSTITUTIONAL Agree With Documented VS: Yes General Appearance: WD/WN, No Apparent Distress - INFECTION CONTROL TRAVEL OUTSIDE OF THE [place] IN LAST 30 DAYS: No - HEENT HEENT: Atraumatic, Normal ENT Exam, Normocephalic Notes: Swelling to the right upper lip after she scratched a pimple just above the right upper lip. There is no abscess minimal redness to the area patient states she did get Tylenol and did use ice for about 10 minutes. - NECK Neck: Normal Inspection, Supple, Thyroid Normal - RESPIRATORY Respiratory: Breath Sounds Normal, No Respiratory Distress, Chest Non-Tender - CARDIOVASCULAR Cardiovascular: Regular Rate, Regular Rhythm, No Murmur - GI/ABDOMEN Gastrointestinal: Abdomen Soft, Abdomen Non-Tender, Abdomen Tender - BACK Back: Normal Inspection - MUSCULOSKELETAL/EXTREMETIES Musculoskeletal/Extremeties: MAEW, FROM, Non-Tender - NEURO Level of Consciousness: Awake, Alert, Appropriate Motor/Sensory: No Motor Deficit, No Sensory Deficit, No Pronator Drift Deep Tendon Reflexes: 2+ - DERM Integumentary: negative: Abscess - Small swollen area above the right upper lip after she squeezed the pimple Course - Re-evaluation Re-evalutation: 06/22/19 07:32 She was treated with doxycycline and instructed on use of doxycycline ice ibuprofen and Tylenol. Patient was instructed to follow-up with primary doctor. Patient verbalized understanding and agreement with treatment plan and patient was discharged home. - Vital Signs Vital signs: Temp Pulse Resp BP Pulse Ox 98.4 F 72 18 111/76 100 06/22/19 06:56 06/22/19 06:56 06/22/19 06:56 06/22/19 06:56 06/22/19 06:56 Discharge - Discharge Clinical Impression: acne face, swelling to lip from acne Condition: Stable Disposition: HOME, SELF-CARE Additional Instructions: You were seen today for swelling to the right upper lip after you squeezed a pimple just above your lip. Doxycycline Doxycycline (Vibramycin, Doryx) is an antibiotic of the tetracycline family. This type of drug is useful for infections of the respiratory tract and genital tract, and is sometimes used for intestinal infections. Unlike most tetracyclines, doxycycline can be taken with food. It is longer acting, and (usually) less prone to side effects than regular tetracycline. Tetracycline antibiotics can stain immature teeth and SHOULD NOT BE TAKEN BY CHILDREN, NURSING MOTHERS, OR WOMEN. Tetracyclines can make you more prone to sunburn. Abdominal cramping, nausea, and diarrhea are occasional side effects. Women may experience vaginal yeast infections. Call the doctor at once if you develop hives, itching, shortness of breath, or lightheadedness. Acetaminophen Acetaminophen may be taken for pain relief or fever control. It's much safer than aspirin, offering a wider range of "safe" dosages. It is safe during . Some brand names are Tylenol, Panadol, Datril, Anacin 3, Tempra, and Liquiprin. Acetaminophen can be repeated every four hours. The following are maximum recommended dosages: WEIGHT Dose Drops Elixir Chewable(80mg) (LBS.) drprs=droppers tsp=teaspoon 6 40 mg .4 ml (1/2) 6-11 80 mg .8 ml (full) 1/2 tsp 1 tab 12-16 120 mg 1 1/2 drprs 3/4 tsp 1 1/2 tabs 17-23 160 mg 2 drprs 1 tsp 2 tabs 24-30 240 mg 3 drprs 1 1/2 tsp 3 tabs 30-35 320 mg 2 tsp 4 tabs 36-41 360 mg 2 1/4 tsp 4 1/2 tabs 42-47 400 mg 2 1/2 tsp 5 tabs 48-53 480 mg 3 tsp 6 tabs 54-59 520 mg 3 1/4 tsp 6 1/2 tabs 60-64 560 mg 3 1/2 tsp 7 tabs 65-70 600 mg 3 3/4 tsp 7 1/2 tabs 71-76 640 mg 4 tsp 8 tabs 77-82 720 mg 4 1/2 tsp 9 tabs 83-88 800 mg 5 tsp 10 tabs >89 pounds or adults 650 mg to 900 mg Acetaminophen can be repeated every four hours. Maximum daily dose not to exceed 4000 mg. These maximum recommended dosages are slightly higher than the dosages written on the product container, but these dosages are very safe and well below the toxic dosage for acetaminophen. Ibuprofen Ibuprofen is an excellent, safe drug for pain control. In addition, it has potent antiinflammatory effects which are beneficial, especially in the treatment of injuries, arthritis, or tendonitis. It's best to take ibuprofen with food. Persons with ulcer disease or allergy to aspirin should notify their physician of this before taking ibuprofen. Take the medication exactly as prescribed. Don't take additional doses unless instructed to do so by your doctor. If you develop wheezing, shortness of breath, hives, faintness, stomach pain, vomiting, or dark black stools, return for re-evaluation at once. Ice Packs Apply ice packs frequently against the painful area. Many different schedules are recommended, such as "20 minutes on, 20 minutes off" or "one hour ice, two hours rest." If you need to work, you may need to go longer between ice treatments. You should plan to have the area ice packed AT LEAST one fourth of the time. The ice should be applied over the wrap, tape, or splint, or over a layer of cloth -- not directly against the skin. Some ice bags have a built-in cloth and can be put directly on the skin. FOLLOW-UP CARE: If you have been referred to a physician for follow-up care, call the physicians office for an appointment as you were instructed or within the next two days. If you experience worsening or a significant change in your symptoms, notify the physician immediately or return to the Emergency Department at any time for re-evaluation. Prescriptions: Doxycycline Hyclate 100 mg PO BID #14 capsule Forms: Return to Work
== END 2019-06-22 07:32 | disposition home or self-care (01) ==
LOC: ER 03:08
DX: L70.9 Acne, unspecified (principal); R22.0 Localized swelling, mass and lump, head
CPT/HCPCS: 99283

== ENCOUNTER 2019-08-31 20:11 | Emergency (ER) | payer BC ==
--- NOTE | 2019-08-31 21:23 | ER Document Report ---
ED Oral Problem - General Chief Complaint: Swallowed Foreign Body Stated Complaint: PILL STUCK IN THROAT Time Seen by Provider: 08/31/19 21:16 Mode of Arrival: Ambulatory Information source: Patient Notes: 19-year-old female presented to ED for swallowing a pill and she felt like it was stuck in her throat. She is alert oriented respirations regular nonlabored she is able to speak. She states she still feels sore in her throat. She states she swallowed the pill about an hour and a half ago. TRAVEL OUTSIDE OF THE [place] IN LAST 30 DAYS: No - HPI Patient complains to provider of: Other Onset: Other - 1 and a half hours ago Onset: Sudden Quality of pain: Dull Severity: Moderate Pain Level: 3 Associated symptoms: Other - Swallowed a pill Worsened by: Other - Swallowing Relieved by: Nothing Similar symptoms previously: No Recently seen / treated by doctor/dentist: No - Related Data Allergies/Adverse Reactions: No Known Allergies Allergy (Verified 06/22/19 03:16) Past Medical History - General Information source: Patient - Social History Smoking Status: Never Smoker Frequency of alcohol use: None Drug Abuse: None Lives with: Friend Family History: Reviewed & Not Pertinent Patient has suicidal ideation: No Patient has homicidal ideation: No - Past Medical History Cardiac Medical History: Reports: None Pulmonary Medical History: Reports: None EENT Medical History: Reports: None Neurological Medical History: Reports: None Endocrine Medical History: Reports: None Renal/ Medical History: Reports: Hx Ovarian Cysts, Hx Pelvic Inflammatory Disease - Chlamydia Musculoskeletal Medical History: Reports Hx Musculoskeletal Trauma Psychiatric Medical History: Reports: Hx Depression - depression Traumatic Medical History: Reports: Hx Fractures - Fractured wrist Infectious Medical History: Reports: None Past Surgical History: Reports: Hx Appendectomy - Immunizations Immunizations up to date: Yes Hx Diphtheria, Pertussis, Tetanus Vaccination: Yes Review of Systems - Review of Systems Constitutional: No symptoms reported EENT: No symptoms reported Cardiovascular: No symptoms reported Respiratory: No symptoms reported Gastrointestinal: No symptoms reported Genitourinary: No symptoms reported Female Genitourinary: No symptoms reported Musculoskeletal: No symptoms reported Skin: No symptoms reported Hematologic/Lymphatic: No symptoms reported Neurological/Psychological: No symptoms reported -: Yes All other systems reviewed and negative Physical Exam - Vital signs Vitals: Temp Pulse BP Pulse Ox 98.5 F 71 132/81 H 100 08/31/19 20:18 08/31/19 20:18 08/31/19 20:18 08/31/19 20:18 Interpretation: Normal - General General appearance: Appears well, Alert - HEENT Head: Normocephalic, Atraumatic Eyes: Normal Pupils: PERRL - Respiratory Respiratory status: No respiratory distress Chest status: Nontender Breath sounds: Normal Chest palpation: Normal - Cardiovascular Rhythm: Regular Heart sounds: Normal auscultation Murmur: No - Abdominal Inspection: Normal Distension: No distension Bowel sounds: Normal Tenderness: Nontender Organomegaly: No organomegaly - Back Back: Normal, Nontender - Extremities General upper extremity: Normal inspection, Nontender, Normal color, Normal ROM, Normal temperature General lower extremity: Normal inspection, Nontender, Normal color, Normal ROM, Normal temperature, Normal weight bearing. No: Danni's sign - Neurological Neuro grossly intact: Yes Cognition: Normal Orientation: AAOx4 Leo Coma Scale Eye Opening: Spontaneous [place] Coma Scale Verbal: Oriented [place] Coma Scale Motor: Obeys Commands [place] Coma Scale Total: 15 Speech: Normal Motor strength normal: LUE, RUE, LLE, RLE Sensory: Normal - Psychological Associated symptoms: Normal affect, Normal mood - Skin Skin Temperature: Warm Skin Moisture: Dry Skin Color: Normal Course - Re-evaluation Re-evalutation: 08/31/19 21:59 X-ray is negative for any swelling or foreign body in throat. She states after swallowing the lidocaine she actually felt better. Patient was discharged home with instructions to follow-up with primary care. Patient verbalized understanding and agreement with treatment plan. - Vital Signs Vital signs: Temp Pulse Resp BP Pulse Ox 98.5 F 71 132/81 H 100 08/31/19 20:18 08/31/19 20:18 08/31/19 20:18 08/31/19 20:18 - Diagnostic Test Radiology reviewed: Image reviewed, Reports reviewed Discharge - Discharge Clinical Impression: swallowed a pill, Sore throat Condition: Stable Disposition: HOME, SELF-CARE Additional Instructions: You came in tonight for having sore throat after swallowing a large pill. Your x-ray is negative for any foreign body in the throat. Often you will scratch the throat in the back while swallowing a pill if you have difficulty swallowing it. This may be sore for couple days. I have given you some viscous lidocaine to help numb the throat at this time this will help to soothe it. You can gargle with warm salt and soda solution when you get home. Please do not try to drink or eat anything for at least the next hour. Please follow-up with your primary doctor if you continue to have any any pain in your throat. Always return to the ED if you develop any difficulty swallowing. Been able to eat applesauce and drink soda with no difficulty while you are here you stated has been painful. This is due to the scratch to the back of the throat while choking on the pill. FOLLOW-UP CARE: If you have been referred to a physician for follow-up care, call the physicia ns office for an appointment as you were instructed or within the next two days. If you experience worsening or a significant change in your symptoms, notify the physician immediately or return to the Emergency Department at any time for re-evaluation. Forms: Return to School
--- NOTE | 2019-08-31 21:29 | RADIOLOGY REPORT (SQ) ---
EXAM DESCRIPTION: XR NECK SOFT TISSUE COMPLETED DATE/TME: 08/31/2019 00:00 CLINICAL INDICATION: 19-year-old female with pelvic stroke. TECHNIQUE: Two-view, PA and lateral projections of the neck soft tissues were obtained. COMPARISON: None. FINDINGS: The prevertebral soft tissues are within normal limits. The visualized bones are normal in alignment and appear to be within normal limits. The airway is patent. IMPRESSION: No acute radiographic abnormalities.
[2019-08-31] MEDS ORDERED: LIDOCAINE 2% VISCOUS SOLN 15 ML UDCUP PO ONE (21:48)
[2019-08-31 22:04] VITALS: BP 131/76
== END 2019-08-31 22:00 | disposition home or self-care (01) ==
LOC: ER 20:11
DX: R09.89 Other specified symptoms and signs involving the circulatory and respiratory systems (principal); J02.9 Acute pharyngitis, unspecified
CPT/HCPCS: 99283; 70360; J3490

== ENCOUNTER 2019-12-11 22:29 | Emergency (ER) | payer BC ==
[2019-12-11 22:36] VITALS: BP 123/60
--- NOTE | 2019-12-11 22:50 | ER Document Report ---
HPI - HPI Time Seen by Provider: 12/11/19 22:45 Notes: 19-year-old female patient presents emergency department chief complaint of dental pain. Patient reports she had her wisdom tooth extracted on the both the right and left bottom 3 days ago. She states she is taking all prescribed medications but she continues to have pain. She is just requesting a work note today for an extra couple of days off that she does not feel that she will be able to talk at her job. She denies any fever or chills. - ROS Systems Reviewed and Negative: Yes All other systems reviewed and negative - CONSTITUTIONAL Notes: Dental pain. - REPRODUCTIVE Reproductive: DENIES: : Past Medical History - General Information source: Patient - Social History Smoking Status: Never Smoker Frequency of alcohol use: None Drug Abuse: None Family History: Reviewed & Not Pertinent Renal/ Medical History: Reports: Hx Ovarian Cysts, Hx Pelvic Inflammatory Disease - Chlamydia. Denies: Hx Peritoneal Dialysis Musculoskeletal Medical History: Reports Hx Musculoskeletal Trauma Psychiatric Medical History: Reports: Hx Depression - depression Traumatic Medical History: Reports: Hx Fractures - Fractured wrist Past Surgical History: Reports: Hx Appendectomy - Immunizations Immunizations up to date: Yes Hx Diphtheria, Pertussis, Tetanus Vaccination: Yes Vertical Provider Document - CONSTITUTIONAL Notes: PHYSICAL EXAMINATION: GENERAL: Well-appearing, well-nourished and in no acute distress. HEAD: Atraumatic, normocephalic. EYES: Pupils equal round extraocular movements intact, conjunctiva are normal. ENT: Nares patent, sites of dental extractions noted, clots present, no abnormality noted. NECK: Normal range of motion LUNGS: No respiratory distress Musculoskeletal: Normal range of motion NEUROLOGICAL: Normal speech, normal gait. PSYCH: Normal mood, normal affect. SKIN: Warm, Dry, normal turgor, no rashes or lesions noted. - INFECTION CONTROL TRAVEL OUTSIDE OF THE [place] IN LAST 30 DAYS: No Course - Re-evaluation Re-evalutation: Patient appears well, nontoxic, work note provided. Patient discharged home in stable condition. - Vital Signs Vital signs: Temp Pulse Resp BP Pulse Ox 98.2 F 71 16 123/60 99 12/11/19 22:35 12/11/19 22:35 12/11/19 22:35 12/11/19 22:35 12/11/19 22:35 Discharge - Discharge Clinical Impression: Pain, dental Condition: Stable Disposition: HOME, SELF-CARE Additional Instructions: You are seen in the emergency department for dental pain after having a dental extraction. Please continue taking all medications as prescribed by your oral surgeon. Use the work note as needed. Return to the emergency department worsening symptoms such as development of fever or inability to swallow. Forms: Return to Work Referrals: MINNIE OROPEZA PA-C [Primary Care Provider] - Follow up as needed
== END 2019-12-11 22:55 | disposition home or self-care (01) ==
LOC: ER 22:29
DX: K08.89 Other specified disorders of teeth and supporting structures (principal); K08.409 Partial loss of teeth, unspecified cause, unspecified class
CPT/HCPCS: 99282

== ENCOUNTER 2020-04-26 15:15 | Emergency (ER) | payer BC ==
[2020-04-26 16:22] VITALS: BP 113/76
--- NOTE | 2020-04-26 16:33 | ER Document Report ---
HPI - HPI Patient complains to provider of: Right shoulder pain Time Seen by Provider: 04/26/20 16:21 Onset: Last week Onset/Duration: Persistent Quality of pain: Achy Pain Level: 4 Context: Patient presents complaining of right shoulder joint pain. Patient was weightlifting last week and developed pain. Patient states the pain worsened today which prompted her visit here. Patient denies any traumatic injury. Associated Symptoms: Other - Shoulder joint pain Exacerbated by: Movement Relieved by: Denies Similar symptoms previously: No Recently seen / treated by doctor: No - ROS ROS below otherwise negative: Yes Systems Reviewed and Negative: Yes All other systems reviewed and negative - CONSTITUTIONAL Constitutional: DENIES: Fever - NEURO Neurology: DENIES: Weakness - GASTROINTESTINAL Gastrointestinal: DENIES: Nausea - REPRODUCTIVE Reproductive: DENIES: : - MUSCULOSKELETAL Musculoskeletal: REPORTS: Extremity pain - Right shoulder. 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 Denies: Hx Peritoneal Dialysis Musculoskeletal Medical History: Reports Hx Musculoskeletal Trauma Psychiatric Medical History: Reports: Hx Depression - depression Traumatic Medical History: Reports: Hx Fractures - Fractured wrist Past Surgical History: Reports: Hx Appendectomy, Hx Oral Surgery - Immunizations Immunizations up to date: Yes Hx Diphtheria, Pertussis, Tetanus Vaccination: Yes Vertical Provider Document - CONSTITUTIONAL Agree With Documented VS: Yes Exam Limitations: No Limitations General Appearance: WD/WN, No Apparent Distress - INFECTION CONTROL TRAVEL OUTSIDE OF THE [place] IN LAST 30 DAYS: No - HEENT HEENT: Atraumatic, Normocephalic - NECK Neck: Normal Inspection, Supple. negative: Lymphadenopathy-Left, Lymphadenopath y-Right - RESPIRATORY Respiratory: Breath Sounds Normal, No Respiratory Distress - CARDIOVASCULAR Cardiovascular: Regular Rate, Regular Rhythm, No Murmur Pulses: Normal: Radial - MUSCULOSKELETAL/EXTREMETIES Musculoskeletal/Extremeties: MAEW, FROM, Tender - Right shoulder joint tenderness over anterior aspect of right humeral head, No Edema. negative: Eccymosis - NEURO Level of Consciousness: Awake, Alert, Appropriate Motor/Sensory: No Motor Deficit, No Sensory Deficit - DERM Integumentary: Warm, Dry, No Rash Course - Re-evaluation Re-evalutation: 04/26/20 16:36 Patient with right shoulder joint tenderness, no dislocation or deformity. Pain is reproducible with right shoulder joint abduction. No calor overlying joint. Suspect soft tissue injury at this time. Patient encouraged to follow-up with her primary doctor or orthopedics for further management. Patient agreeable with deferring any x-ray imaging at this time. 04/26/20 16:43 Patient reports having recent dental work for which she had been prescribed narcotic medication. Patient states that she ran out of the pain medication as it was written for every 6 hours. Patient advised that only a small amount of pain medication will be written at this time. Patient advised that other nonnarcotic medications would be prescribed. - Vital Signs Vital signs: Temp Pulse Resp BP Pulse Ox 98.7 F 90 16 113/76 98 04/26/20 16:18 04/26/20 16:18 04/26/20 16:18 04/26/20 16:18 04/26/20 16:18 Procedures - Immobilization Right Shoulder Pre-Proc Neuro Vasc Exam: Normal Performed by: PCT Post-Proc Neuro Vasc Exam: Normal Alignment checked and good: Yes Discharge - Discharge Clinical Impression: Sprain of right shoulder Qualifiers: Encounter type: initial encounter Shoulder sprain type: unspecified sprain Qualified Code(s): S43.401A - Unspecified sprain of right shoulder joint, initial encounter Condition: Stable Disposition: HOME, SELF-CARE Instructions: Shoulder Injury ([facility]), Sling as Treatment ([facility]) Additional Instructions: Return immediately for any new or worsening symptoms Followup with your primary care provider, call tomorrow to make a followup appointment Follow-up with orthopedics for further management, call tomorrow for an appoi ntment Prescriptions: Lidocaine [Lidoderm 5% (700 mg) Transdermal Patch] 1 patch TP DAILY PRN #10 adh..patch PRN Reason: Naproxen [Naprosyn 250 Nmg Tablet] 1 tab PO BID #14 tablet Oxycodone HCl/Acetaminophen [Percocet 5-325 mg Tablet] 1 tab PO ASDIR PRN #6 tablet PRN Reason: Referrals: MINNIE OROPEZA PA-C [Primary Care Provider] - Follow up as needed [facility] [Provider Group] - Follow up as needed LEATHA JOHNSON MD [ACTIVE STAFF] - Follow up as needed
== END 2020-04-26 17:27 | disposition home or self-care (01) ==
LOC: ER 15:15
DX: S43.401A Unspecified sprain of right shoulder joint, initial encounter (principal); X58.XXXA Exposure to other specified factors, initial encounter
CPT/HCPCS: 99283

== ENCOUNTER 2020-04-27 04:54 | Emergency (ER) | payer BC ==
[2020-04-27] MEDS ORDERED: KETOROLAC TROMETHAMINE 60 MG/2 ML SDV IM ONE (07:48)
--- NOTE | 2020-04-27 08:17 | RADIOLOGY REPORT (SQ) ---
EXAM DESCRIPTION: SHOULDER RIGHT 2 OR MORE VIEWS IMAGES COMPLETED DATE/TIME: 04/27/2020 8:05 am REASON FOR STUDY: pain COMPARISON: None. NUMBER OF VIEWS: Three views. TECHNIQUE: Internal rotation, external rotation, and Y view images acquired of the right shoulder. LIMITATIONS: None. FINDINGS: MINERALIZATION: Normal. BONES: No acute fracture. No worrisome bone lesions. JOINTS: Slight widening of the acromioclavicular joint measured at 6.8 mm. Glenohumeral joint is unr emarkable. VISUALIZED LUNGS AND RIBS: No pneumothorax. No rib fracture. SOFT TISSUES: No radiopaque foreign body. OTHER: No other significant finding. IMPRESSION: There is slight widening of the acromioclavicular joint measured at 6.8 mm. Less than 5 is considered within normal limits. TECHNICAL DOCUMENTATION: JOB ID: [id number] 2010 [employer]- All Rights Reserved Reading location - IP/workstation name: [email or web address]
[2020-04-27] MEDS ORDERED: HYDROMORPHONE HCL INJ/PF 2 MG/ML AMPULE IM ONE (08:35)
--- NOTE | 2020-04-27 08:35 | ER Document Report ---
ED Extremity Problem, Upper - General Chief Complaint: Shoulder Injury Stated Complaint: POTENTIAL SHOULDER INJURY WITH PAIN Time Seen by Provider: 04/27/20 07:34 Mode of Arrival: Ambulatory Information source: Patient TRAVEL OUTSIDE OF THE [place] IN LAST 30 DAYS: No - HPI Notes: Patient presents with right shoulder pain. She states that about a week ago when she was lifting weights at the gym she felt some pain in the right shoulder. She states instantly gotten worse. She states she was seen here yesterday and prescribed some Percocet but this is not working. She denies any new injuries. The pain in the shoulder is constant. Is severe. It radiates down the right arm. Is worse with movement and better with rest. She denies any chest pain or shortness of breath. - Related Data Allergies/Adverse Reactions: No Known Allergies Allergy (Verified 12/11/19 22:49) Home Medications: oxycodone, naproxen, ambien, clidamycin, probiotic, gabapentin, Past Medical History - General Information source: Patient - Social History Smoking Status: Never Smoker Frequency of alcohol use: None Drug Abuse: None Family History: Reviewed & Not Pertinent Renal/ Medical History: Reports: Hx Ovarian Cysts, Hx Pelvic Inflammatory Disease - Chlamydia. Denies: Hx Peritoneal Dialysis Musculoskeletal Medical History: Reports Hx Musculoskeletal Trauma Psychiatric Medical History: Reports: Hx Depression - depression Traumatic Medical History: Reports: Hx Fractures - Fractured wrist Past Surgical History: Reports: Hx Appendectomy, Hx Oral Surgery - Immunizations Immunizations up to date: Yes Hx Diphtheria, Pertussis, Tetanus Vaccination: Yes Review of Systems - Review of Systems Constitutional: denies: Chills, Fever Cardiovascular: denies: Chest pain, Palpitations Respiratory: denies: Cough, Short of breath -: Yes All other systems reviewed and negative Physical Exam - Vital signs Interpretation: Normal - General General appearance: Appears well, Alert - HEENT Head: Normocephalic, Atraumatic Eyes: Normal Pupils: PERRL - Respiratory Respiratory status: No respiratory distress Chest status: Nontender Breath sounds: Normal Chest palpation: Normal - Cardiovascular Rhythm: Regular Heart sounds: Normal auscultation Murmur: No - Abdominal Inspection: Normal Distension: No distension Bowel sounds: Normal Tenderness: Nontender Organomegaly: No organomegaly - Back Back: Normal, Nontender - Extremities General upper extremity: Normal inspection, Normal color, Normal temperature, Other - Right shoulder is diffusely tender to palpation. Inspection of the right shoulder is normal. She has limited range of motion of the right shoulder secondary to pain. General lower extremity: Normal inspection, Nontender, Normal color, Normal ROM, Normal temperature, Normal weight bearing. No: Danni's sign - Neurological Neuro grossly intact: Yes Cognition: Normal Orientation: AAOx4 Leo Coma Scale Eye Opening: Spontaneous Leo Coma Scale Verbal: Oriented Leo Coma Scale Motor: Obeys Commands [place] Coma Scale Total: 15 Speech: Normal Motor strength normal: LUE, RUE, LLE, RLE Sensory: Normal - Psychological Associated symptoms: Normal affect, Normal mood - Skin Skin Temperature: Warm Skin Moisture: Dry Skin Color: Normal Course - Re-evaluation Re-evalutation: 04/27/20 08:34 Patient appears to have a mild AC joint separation on x-ray. Otherwise she is neurovascularly intact. - Diagnostic Test Radiology reviewed: Image reviewed, Reports reviewed Discharge - Discharge Clinical Impression: AC joint pain Qualifiers: Laterality: right Qualified Code(s): M25.511 - Pain in right shoulder Condition: Stable Disposition: HOME, SELF-CARE Instructions: Oral Narcotic Medication ([facility]), Sling as Treatment ([facility]), Pain Medication Injection ([facility]) Referrals: DEMARCO WALL JR, DO [ACTIVE PROVISIONAL STAFF] - Follow up in 3-5 days
[2020-04-27 09:39] VITALS: BP 121/67
== END 2020-04-27 09:56 | disposition home or self-care (01) ==
LOC: ER 04:54
DX: M25.511 Pain in right shoulder (principal)
CPT/HCPCS: 99284; 96372; 73030; J1170

== ENCOUNTER → 2020-06-15 | Outpatient (CLI) | payer BC ==
--- NOTE | 2020-06-15 11:28 | ER RDC ASSESSMENT REPORT ---
Intake - In the Last 14 days Have you traveled outside [place]?: No Have you been in close contact with someone CONFIRMED: Yes Worked in Healthcare?: No - Symptoms Subjective Fever(Jackson feverish): Yes Chills: Yes Muscule Aches: Yes Runny Nose: Yes Sore Throat: Yes Cough (New or worsening chronic cough): Yes Shortness of breath: Yes Nausea or Vomiting: Yes Headache: Yes Abdominal Pain: Yes Diarrhea(3 or more loose stools in last 24 hours): Yes - Do you have any of the following Chronic lung disease: Asthma or emphysema or COPD: No Cystic Fibrosis: No Diabetes: No High Blood Pressure: No Cardiovascular Disease: No Chronic Kidney Disease: No Chronic Liver Disease: No Chronic blood disorder like Sickle Cell Disease: No Weak immune system due to disease or medication: No Neurologic condition that limits movement: No Developmental delay - Moderate to Severe: No Recent (within past 2 weeks) or current : No Morbid Obesity (>100 pounds over ideal weight): No Obesity Comment: Height 5 feet 3 inches weight 142 pounds - Objective Temperature: 99.3 F Pulse Rate: 90 Respiratory Rate: 18 Blood Pressure: 115/72 O2 Sat by Pulse Oximetry: 97 Objective: Given above, testing performed: If Testing Performed: Test Specimen Type Sent to General - General Information source: Patient Notes: Here at [facility] for Covid testing patient reports boyfriend has symptoms and was exposed to somebody positive for Covid boyfriend is not planning to be tested 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 Patient does comply with PPE per protocol. Patient started to have symptoms yesterday which include fever chills muscle aches sore throat cough shortness of breath nausea headache diarrhea fatigue and loss of taste and smell. Patient does not have any known PCP local. - Related Data Allergies/Adverse Reactions: No Known Allergies Allergy (Verified 12/11/19 22:49) Past Medical History - General Information source: Patient - Social History Smoking Status: Never Smoker Family History: Reviewed & Not Pertinent Renal/ Medical History: Reports: Hx Ovarian Cysts, Hx Pelvic Inflammatory Disease - Chlamydia. Denies: Hx Peritoneal Dialysis Musculoskeletal Medical History: Reports Hx Musculoskeletal Trauma Psychiatric Medical History: Reports: Hx Depression - depression Traumatic Medical History: Reports: Hx Fractures - Fractured wrist Past Surgical History: Reports: Hx Appendectomy, Hx Oral Surgery Physical Exam - General General appearance: Appears well, Alert In distress: None Notes: PHYSICAL EXAMINATION: GENERAL: Well-appearing and in no acute distress. HEAD: Atraumatic, normocephalic. EYES: sclera anicteric, conjunctiva are normal. ENT: nares patent. Moist mucous membranes. NECK: Normal range of motion, supple without lymphadenopathy LUNGS: CTAB and equal. No wheezes rales or rhonchi. Respirations even and unla bored lung sounds clear. HEART: Regular rate and rhythm without murmurs ABDOMEN: Soft, nontender, normal bowel sounds, no guarding. EXTREMITIES: Normal range of motion, no pitting edema. No cyanosis. NEUROLOGICAL: Cranial nerves grossly intact. Normal speech. Normal gait. PSYCH: Normal mood, normal affect. SKIN: Warm, Dry, normal turgor, no rashes or lesions noted Diagnostic Results Laboratory Results: Pending strep culture. Pending Covid testing results. Patient provided instructions regarding Covid to include: As a person under investigation for Covid 19, the [place] department of Health and Human Services, division of public health advises you to adhere to the following guidance until your test results are reported to you. If your test result is positive, you will receive additional information from your provider and your local health department at that time. Remain at home until you are cleared by the health provider or public health authorities. Keep a log of visitors to your home, notify any visitors to your home of your isolation status. If you plan to move to a new address or leave the critical access hospital, notify the local [facility] department in your [facility]. Call your doctor or seek care if you have an urgent medical need. Before seeking medical care, call ahead to get instructions from the provider before arriving at the medical office clinic or hospital. Notify them that you are being tested for the virus that causes Covid 19 so that arrangements can be made, as necessary, to prevent transmission to others in the healthcare setting. Next, notify the local health department in your county. If a medical emergency arises and you need to call 911, inform the first responders that you are being tested for the virus that causes Covid 19. Next, notify the local health department in your county. Patient Education/Counseling Counseling/Education: Patient presents with upper respiratory symptoms worrisome for possible Covid 19. Patient does not have emergency worring symptoms such as difficulty breathing, shortness of breath, chest pain, pressure, confusion or cyanosis. Patient appears suitable for discharge. Patient instructed to follow-up at urgent care or the ED for persistent or worsening symptoms. Patient's vital signs are stable and patient is nontoxic in appearance. Good return precautions have been discussed with patient, patient verbalized understanding and is agreeable with discharge plan of care at this time. RDC Discharge - Discharge Clinical Impression: Flu-like symptoms, Encounter for screening laboratory testing for COVID-19 virus Upper respiratory infection Qualifiers: URI type: unspecified URI Qualified Code(s): J06.9 - Acute upper respiratory infection, unspecified Condition: Stable Disposition: Home; Selfcare
[2020-06-15 11:29] VITALS: BP 115/72
[2020-06-15 12:25] LABS: A TYPE INFLUENZA AG NEGATIVE (NEGATIVE); B INFLUENZA AG NEGATIVE (NEGATIVE)
== END ==
LOC: RDC 10:09
PROVIDERS: ATTEND Nurse Practitioner Family
DX: U07.1 COVID-19 (principal); J06.9 Acute upper respiratory infection, unspecified; R50.9 Fever, unspecified; R05 Cough; R06.02 Shortness of breath; J02.9 Acute pharyngitis, unspecified; M79.10 Myalgia, unspecified site; R09.89 Other specified symptoms and signs involving the circulatory and respiratory systems; R11.0 Nausea; R51.9 Headache, unspecified; R10.9 Unspecified abdominal pain; R19.7 Diarrhea, unspecified
CPT/HCPCS: 87070; 87880; 87804; U0003; C9803; 87635; 99201; 99211

== ENCOUNTER 2020-06-29 09:03 | Emergency (ER) | payer SELFPAY ==
--- NOTE | 2020-06-29 10:18 | ER Document Report ---
ED Medical Screen (RME) - General Chief Complaint: Vaginal Bleeding Stated Complaint: VAG BLEED Time Seen by Provider: 06/29/20 10:14 Primary Care Provider: MINNIE OROPEZA PA-C [Primary Care Provider] - Follow up as needed Mode of Arrival: Ambulatory Information source: Patient Notes: HPI; 20-year-old female presents to the emergency room complaining of vaginal cramping and bleeding that started this morning. Patient states her last menstrual cycle was May 15 she had a positive home test on Friday started bleeding today. She is a 2 para 1. PE: Alert and oriented x3. Lungs: Clear to auscultation without rales, rhonchi, wheezes. Heart: Regular rate rhythm without murmurs, rubs, gallops. I have greeted and performed a rapid initial assessment of this patient. A comprehensive ED assessment and evaluation of the patient, analysis of test results and completion of the medical decision making process will be conducted by additional ED providers. I have specifically instructed the patient or family members with the patient to immediately return to any nursing staff should anything change in the patient's condition or with their chief complaint. TRAVEL OUTSIDE OF THE [place] IN LAST 30 DAYS: No - Related Data Allergies/Adverse Reactions: No Known Allergies Allergy (Verified 06/29/20 09:57) Home Medications: ambien. gabapentin Past Medical History Renal/ Medical History: Reports: Hx Ovarian Cysts, Hx Pelvic Inflammatory Disease - Chlamydia. Denies: Hx Peritoneal Dialysis Musculoskeltal Medical History: Reports Hx Musculoskeletal Trauma Psychiatric Medical History: Reports: Hx Depression - depression Traumatic Medical History: Reports: Hx Fractures - Fractured wrist Past Surgical History: Reports: Hx Appendectomy, Hx Oral Surgery - Immunizations Immunizations up to date: Yes Hx Diphtheria, Pertussis, Tetanus Vaccination: Yes Physical Exam - Vital signs Vitals: Temp Pulse Resp BP Pulse Ox 98.3 F 85 12 127/74 H 100 06/29/20 09:06 06/29/20 09:06 06/29/20 09:06 06/29/20 09:06 06/29/20 09:06 Course - Vital Signs Vital signs: Temp Pulse Resp BP Pulse Ox 98.3 F 85 12 127/74 H 100 06/29/20 09:06 06/29/20 09:06 06/29/20 09:06 06/29/20 09:06 06/29/20 09:06 Doctor's Discharge - Discharge Referrals: MINNIE OROPEZA PA-C [Primary Care Provider] - Follow up as needed
[2020-06-29 10:25] LABS: ABSOLUTE EOSINOPHILS # (AUTO) 0.1 10^3/uL (0.0-0.6); ABSOLUTE LYMPHOCYTES (AUTO) 1.4 10^3/uL (0.5-4.7); ABSOLUTE MONOCYTES (AUTO) 0.5 10^3/uL (0.1-1.4); ABSOLUTE NEUT (AUTO) 6.2 10^3/uL (1.7-8.2); BASOPHILS % (AUTO) 0.5 % (0-2); HEMOGLOBIN 14.5 g/dL (12.0-15.5); LYMPHOCYTES % (AUTO) 17.1 % (13-45); MEAN CORPUSCULAR HEMOGLOBIN 28.4 pg (27.0-33.4); MEAN CORPUSCULAR HGB CONC 33.7 g/dL (32.0-36.0); MEAN CORPUSCULAR VOLUME 84 fl (80-97); PLATELET COUNT 250 10^3/uL (150-450); RED BLOOD COUNT 5.11 10^6/uL (3.72-5.28); SEGMENTED NEUTROPHILS % (AUTO) 75.4 % (42-78); TOTAL CELLS COUNTED % (AUTO) 100 %; WHITE BLOOD COUNT 8.1 10^3/uL (4.0-10.5)
[2020-06-29 10:39] LABS: APPEARANCE,URINE CLEAR; BILIRUBIN,URINE NEGATIVE (NEGATIVE); COLOR,URINE YELLOW; GLUCOSE, URINE NEGATIVE (NEGATIVE); KETONES,URINE NEGATIVE (NEGATIVE); LEUKOCYTE ESTERASE,URINE TRACE (NEGATIVE); NITRITE,URINE NEGATIVE (NEGATIVE); PROTEIN,URINE NEGATIVE (NEGATIVE); URINE SPECIFIC GRAVITY 1.021; UROBILINOGEN,URINE NEGATIVE mg/dL (<2.0)
[2020-06-29 10:47] LABS: ALBUMIN 4.4 g/dL (3.5-5.0); ALKALINE PHOSPHATASE 58 U/L (38-126); ANION GAP 9 (5-19); ASPARTATE AMINO TRANSFERASE 21 U/L (14-36); BILIRUBIN,DIRECT 0.2 mg/dL (0.0-0.4); BILIRUBIN,TOTAL 0.7 mg/dL (0.2-1.3); BLOOD UREA NITROGEN 14 mg/dL (7-20); CALCIUM 9.6 mg/dL (8.4-10.2); CARBON DIOXIDE 27 mmol/L (22-30); CHLORIDE 106 mmol/L (98-107); GLUCOSE 90 mg/dL (75-110); POTASSIUM 4.4 mmol/L (3.6-5.0); TOTAL PROTEIN 7.2 g/dL (6.3-8.2)
--- NOTE | 2020-06-29 12:02 | RADIOLOGY REPORT (SQ) ---
EXAM DESCRIPTION: U/S NON OB PEL TV W/DOPPLER IMAGES COMPLETED DATE/TIME: 06/29/2020 11:47 am REASON FOR STUDY: vaginal bleeding COMPARISON: None. TECHNIQUE: Dynamic and static grayscale images acquired of the pelvis via transvaginal approach and recorded on PACS. Additional selected color Doppler and spectral images recorded. LIMITATIONS: None. FINDINGS: UTERUS: Contour normal. No mass. ENDOMETRIAL STRIPE: No focal or generalized thickening. No masses. CERVIX: No nabothian cysts. RIGHT OVARY AND DOPPLER: Normal size. No worrisome masses. Normal arterial vascular flow without evid ence for torsion. LEFT OVARY AND DOPPLER: Normal size. No worrisome masses. Normal arterial vascular flow without evide nce for torsion. FREE FLUID: None noted. OTHER: No other significant finding. IMPRESSION: NORMAL TRANSVAGINAL PELVIC ULTRASOUND. TECHNICAL DOCUMENTATION: JOB ID: [id number] 2010 [employer]- All Rights Reserved Rev-11/07 Reading location - IP/workstation name: [email or web address]
[2020-06-29] MEDS ORDERED: KETOROLAC TROMETHAMINE 60 MG/2 ML SDV IM ONE (12:34)
[2020-06-29] MEDS ORDERED: OXYCODONE-ACETAMINOPHEN 5-325 MG TABLET PO ONE (12:35)
--- NOTE | 2020-06-29 13:08 | ER Document Report ---
ED GI/ - General Chief Complaint: Vaginal Bleeding Stated Complaint: VAG BLEED Time Seen by Provider: 06/29/20 10:14 Primary Care Provider: MINNIE OROPEZA PA-C [Primary Care Provider] - Follow up as needed Mode of Arrival: Ambulatory Notes: CHIEF COMPLAINT: Vaginal bleeding and pelvic cramping HPI: 20-year-old female presenting for heavy vaginal bleeding this morning with pelvic cramping worse than normal menstrual cycles. States that she took 2 tests 2 days ago and thought she might have seen a faint line but was not sure. Patient last menstrual cycle was in April. She states she has been somewhat irregular over the last 6 months. No fever. No dysuria. ROS: See HPI - all other systems were reviewed and are otherwise negative Constitutional: no fever or recent illness Eyes: no drainage, no blurred vision ENT: no runny nose, no sore throat Cardiovascular: no chest pain Resp: no SOB, no cough GI: no vomiting, no diarrhea, positive pelvic pain : no dysuria, no vaginal discharge, positive vaginal bleeding Integumentary: no rash Allergy: no hives Musculoskeletal: no extremity pain or swelling Neurological: no numbness/tingling, no weakness MEDICATIONS: I agree with the patient medications as charted by the RN. ALLERGIES: I agree with the allergies as charted by the RN. PAST MEDICAL HISTORY/PAST SURGICAL HISTORY: Reviewed and agree as charted by RN. SOCIAL HISTORY: Reviewed and agree as charted by RN. FAMILY HISTORY: No significant familial comorbid conditions directly related to patient complaint EXAM: Reviewed vital signs as charted by RN. CONSTITUTIONAL: Alert and oriented and responds appropriately to questions. Well-appearing; well-nourished HEAD: Normocephalic; atraumatic EYES: PERRL; Conjunctivae clear, sclerae non-icteric ENT: normal nose; no rhinorrhea; moist mucous membranes; pharynx without lesions noted NECK: Supple without meningismus; non-tender; no cervical lymphadenopathy, no masses CARD: RRR; no murmurs, no clicks, no rubs, no gallops; symmetric distal pulses RESP: Normal chest excursion without splinting or tachypnea; breath sounds clear and equal bilaterally; no wheezes, no rhonchi, no rales, 98% on room air not hypoxic ABD/GI: Normal bowel sounds; non-distended; soft, non-tender, no rebound, no guarding; no palpable organomegaly or masses : Female nurse exhaust machine operator present. External genitalia normal. No skin lesions noted. Pelvic Exam: Very small amount of bright red blood in the vaginal vault no clots. No purulent discharge. Cervix appears normal. No CMT. No lesions or masses. Uterus normal size and non tender. Right/Left adnexa normal size and mildly tender bilaterally. BACK: The back appears normal and is non-tender to palpation, there is no CVA tenderness EXT: Normal ROM in all joints; non-tender to palpation; no cyanosis, no effusions, no edema SKIN: Normal color for age and race; warm; dry; good turgor; no acute lesions noted NEURO: Moves all extremities equally; Motor and sensory function intact PSYCH: The patient's mood and manner are appropriate. Grooming and personal hygiene are appropriate. MDM: 20-year-old female presenting with heavy vaginal bleeding today. Minimal bleeding on exam. Ultrasound ordered in the triage process was negative. Screening labs are negative but she is also not by beta-hCG. Discussed at length with the patient. She likely has increased cramping and bleeding from missing her menstrual period the prior month. She was also regular the months preceding her period in April. Does not have an FINANCE INSURANCE MANAGER for follow-up will refer to FINANCE INSURANCE MANAGER. Patient states she used 1 heavy menstrual pad this morning and filled it in 30 minutes but has not placed another one on and there is minimal bleeding noted at this time TRAVEL OUTSIDE OF THE [place] IN LAST 30 DAYS: No - Related Data Allergies/Adverse Reactions: No Known Allergies Allergy (Verified 06/29/20 09:57) Home Medications: ambien. gabapentin Past Medical History - General Information source: Patient - Social History Smoking Status: Never Smoker Family History: Reviewed & Not Pertinent Renal/ Medical History: Reports: Hx Ovarian Cysts, Hx Pelvic Inflammatory Disease - Chlamydia. Denies: Hx Peritoneal Dialysis Musculoskeletal Medical History: Reports Hx Musculoskeletal Trauma Psychiatric Medical History: Reports: Hx Depression - depression Traumatic Medical History: Reports: Hx Fractures - Fractured wrist Past Surgical History: Reports: Hx Appendectomy, Hx Oral Surgery - Immunizations Immunizations up to date: Yes Hx Diphtheria, Pertussis, Tetanus Vaccination: Yes Physical Exam - Vital signs Vitals: Temp Pulse Resp BP Pulse Ox 98.3 F 85 12 127/74 H 100 06/29/20 09:06 06/29/20 09:06 06/29/20 09:06 06/29/20 09:06 06/29/20 09:06 Course - Re-evaluation Re-evalutation: 06/29/20 13:16 Patient is noted to have bacterial vaginitis. Will place on Flagyl. Will place on anti-inflammatories for pain. Follow-up FINANCE INSURANCE MANAGER - Vital Signs Vital signs: Temp Pulse Resp BP Pulse Ox 98.3 F 85 12 127/74 H 100 06/29/20 09:06 06/29/20 09:06 06/29/20 09:06 06/29/20 09:06 06/29/20 09:06 - Laboratory Results Result Diagrams: 06/29/20 10:09 06/29/20 10:09 Laboratory Results Interpreted: 06/29/20 06/29/20 10:09 10:09 RDW 15.0 H Urine Blood MODERATE H Ur Leukocyte Esterase TRACE H Critical Laboratory Results Reviewed: No Critical Results - Radiology Results Critical Radiology Results Reviewed: No Critical Results Discharge - Discharge Clinical Impression: Abnormal vaginal bleeding, Bacterial vaginitis, Acute pelvic pain, female Condition: Stable Disposition: HOME, SELF-CARE Instructions: Vaginal Bleeding ([facility]) Additional Instructions: It was noted on your screening today that you have bacterial vaginitis a bacterial infection in the vagina. This can cause increased cramping and discomfort, take the antibiotics to treat this. Take the Toradol for pain. Follow-up closely with FINANCE INSURANCE MANAGER for further evaluation and treatment call for appointment. Your lab work and ultrasound did not show other acute abnormalities today Prescriptions: Ketorolac Tromethamine [Toradol 10 mg Tablet] 10 mg PO Q6HP PRN #20 tablet PRN Reason: Metronidazole [Flagyl 500 mg Tablet] 500 mg PO BID #14 tablet Referrals: MINNIE OROPEZA PA-C [Primary Care Provider] - Follow up as needed TIFFANY LEWIS MD [ACTIVE STAFF] - Follow up as needed
[2020-06-29 13:12] LABS: BACTERIA (WET MOUNT) 4+ BACTERIA SEEN; EPITHELIALS (WET MOUNT) 3+ EPITHELIALS SEEN; RBCS (WET MOUNT) 4+ RBCS SEEN; T.VAGINALIS (WET MOUNT) NO TRICHOMONAS SEEN; WBCS (WET MOUNT) 1+ WBCS SEEN; YEAST (WET MOUNT) NO YEAST SEEN
[2020-06-29 13:35] VITALS: BP 122/70
[2020-06-29 14:38] LABS: CHLAM PCR NOT DETECTED (NOT DETECT)
== END 2020-06-29 13:39 | disposition home or self-care (01) ==
LOC: ER 09:03
DX: N93.9 Abnormal uterine and vaginal bleeding, unspecified (principal); N76.0 Acute vaginitis; B96.89 Other specified bacterial agents as the cause of diseases classified elsewhere; R10.2 Pelvic and perineal pain; Z79.899 Other long term (current) drug therapy
CPT/HCPCS: 99285; 96372; 36415; 87210; 84702; 84703; 85025; 80053; 81001; 87491; 87591; 76830; 93976; J1885

== ENCOUNTER 2020-07-06 10:04 | Emergency (ER) | payer SELFPAY ==
--- NOTE | 2020-07-06 10:55 | ER Document Report ---
ED General - General Chief Complaint: Flank Pain Stated Complaint: SORE THROAT Time Seen by Provider: 07/06/20 10:24 Primary Care Provider: MINNIE OROPEZA PA-C [Primary Care Provider] - Follow up as needed Notes: CHIEF COMPLAINT: Sore throat for 2 days HPI: 20-year-old female reporting sore throat with painful swallowing for 2 days. No fever. Patient also complaining of low back pain similar to when she has had prior UTIs. No dysuria. No abdominal or pelvic pain. No vomiting. Patient states she has already been Covid positive. ROS: See HPI - all other systems were reviewed and are otherwise negative Constitutional: no fever Eyes: no drainage, no blurred vision ENT: no runny nose, + sore throat Cardiovascular: no chest pain Resp: no SOB, no cough GI: no vomiting, no diarrhea, no abdominal pain : no dysuria Integumentary: no rash Allergy: no hives Musculoskeletal: no extremity pain or swelling, positive low back pain Neurological: no numbness/tingling, no weakness MEDICATIONS: I agree with the patient medications as charted by the RN. ALLERGIES: I agree with the allergies as charted by the RN. PAST MEDICAL HISTORY/PAST SURGICAL HISTORY: Reviewed and agree as charted by RN. SOCIAL HISTORY: Reviewed and agree as charted by RN. FAMILY HISTORY: No significant familial comorbid conditions directly related to patient complaint EXAM: Reviewed vital signs as charted by RN. CONSTITUTIONAL: Alert and oriented and responds appropriately to questions. Well-appearing; well-nourished HEAD: Normocephalic; atraumatic EYES: PERRL; Conjunctivae clear, sclerae non-icteric ENT: normal nose; no rhinorrhea; moist mucous membranes; pharynx without lesions noted, no uvula edema or deviation, no tonsillar hypertrophy, phonation normal NECK: Supple without meningismus; non-tender; no cervical lymphadenopathy, no masses CARD: RRR; no murmurs, no clicks, no rubs, no gallops; symmetric distal pulses RESP: Normal chest excursion without splinting or tachypnea; breath sounds clear and equal bilaterally; no wheezes, no rhonchi, no rales, pulse oximetry 97% on room air not hypoxic ABD/GI: Normal bowel sounds; non-distended; soft, non-tender, no rebound, no guarding; no palpable organomegaly or masses. BACK: The back appears normal and is non-tender to palpation, there is no CVA tenderness EXT: Normal ROM in all joints; non-tender to palpation; no cyanosis, no effusions, no edema SKIN: Normal color for age and race; warm; dry; good turgor; no acute lesions noted NEURO: Moves all extremities equally; Motor and sensory function intact PSYCH: The patient's mood and manner are appropriate. Grooming and personal hygiene are appropriate. MDM: 20-year-old female presenting for sore throat primarily. No pharyngeal erythema is noted will obtain rapid strep this may be a viral etiology. Patient has apparently already had Covid. Declines Covid testing today. Also reports some mild low back pain no unilateral flank pain on exam, no pelvic pain. Wants to be evaluated for UTI. States she was seen a week ago for miscarriage The patient was evaluated during the global COVID-19 pandemic and that diagnosis was suspected/considered upon their initial presentation. Their evaluation, treatment and testing was consistent with current guidelines for patients who present with complaints or symptoms that may be related to COVID-19 TRAVEL OUTSIDE OF THE [place] IN LAST 30 DAYS: No - Related Data Allergies/Adverse Reactions: No Known Allergies Allergy (Verified 07/06/20 10:53) Past Medical History - Social History Smoking Status: Unknown if Ever Smoked Family History: Reviewed & Not Pertinent Renal/ Medical History: Reports: Hx Ovarian Cysts, Hx Pelvic Inflammatory Disease - Chlamydia. Denies: Hx Peritoneal Dialysis Musculoskeletal Medical History: Reports Hx Musculoskeletal Trauma Psychiatric Medical History: Reports: Hx Depression - depression Traumatic Medical History: Reports: Hx Fractures - Fractured wrist Past Surgical History: Reports: Hx Appendectomy, Hx Oral Surgery - Immunizations Immunizations up to date: Yes Hx Diphtheria, Pertussis, Tetanus Vaccination: Yes Physical Exam - Vital signs Vitals: Temp Pulse Resp BP Pulse Ox 97.7 F 65 16 128/71 H 100 07/06/20 10:07 07/06/20 10:07 07/06/20 10:07 07/06/20 10:07 07/06/20 10:07 Course - Re-evaluation Re-evalutation: 07/06/20 11:11 Strep test is negative, urinalysis is negative, we will add culture to the urine. Discharge home symptomatic treatment - Vital Signs Vital signs: Temp Pulse Resp BP Pulse Ox 97.7 F 65 16 128/71 H 100 07/06/20 10:07 07/06/20 10:07 07/06/20 10:07 07/06/20 10:07 07/06/20 10:07 - Laboratory Results Laboratory Results Interpreted: 07/06/20 10:30 Ur Leukocyte Esterase TRACE H Critical Laboratory Results Reviewed: No Critical Results - Radiology Results Critical Radiology Results Reviewed: No Critical Results Discharge - Discharge Clinical Impression: Sore throat (viral) Back pain Qualifiers: Back pain location: low back pain Chronicity: acute Back pain laterality: unspecified Sciatica presence: without sciatica Qualified Code(s): M54.5 - Low back pain Condition: Stable Disposition: HOME, SELF-CARE Additional Instructions: Strep test today was negative. Urinalysis did not show evidence of an infection. Take ibuprofen or Tylenol for pain. Salt water gargles 2-3 times daily. A culture has been added for both strep and urinalysis. You should hear from our follow-up nurse if either of these are positive and require treatment. Referrals: MINNIE OROPEZA PA-C [Primary Care Provider] - Follow up as needed
[2020-07-06 10:58] LABS: APPEARANCE,URINE CLEAR; BILIRUBIN,URINE NEGATIVE (NEGATIVE); COLOR,URINE YELLOW; GLUCOSE, URINE NEGATIVE (NEGATIVE); KETONES,URINE NEGATIVE (NEGATIVE); LEUKOCYTE ESTERASE,URINE TRACE (NEGATIVE); NITRITE,URINE NEGATIVE (NEGATIVE); PROTEIN,URINE NEGATIVE (NEGATIVE); URINE SPECIFIC GRAVITY 1.018; UROBILINOGEN,URINE NEGATIVE mg/dL (<2.0)
[2020-07-06 11:47] VITALS: BP 138/84
== END 2020-07-06 11:48 | disposition home or self-care (01) ==
LOC: ER 10:04
DX: J02.9 Acute pharyngitis, unspecified (principal); M54.5 Low back pain; R10.9 Unspecified abdominal pain; R13.10 Dysphagia, unspecified
CPT/HCPCS: 81001; 81025; 87070; 87077; 87086; 87088; 87880; 99283